=== PATIENT | female | born 1950 | race Caucasian/White ===

== ENCOUNTER → 2017-09-17 | Outpatient (CLI) | payer MEDICARE, OTHER ==
--- NOTE | 2017-09-18 18:10 | Diagnostic Imaging Report ---
#[id number] - MGSCRBIL #BILATERAL DIGITAL SCREENING MAMMOGRAM WITH CAD: 09/17/2017 CLINICAL: Routine screening. Comparison is made to exam dated: 10/13/2014 mammogram - [facility]. Current study contains 4 films. The tissue of both breasts is predominantly fatty. Current study was also evaluated with a Computer Aided Detection (CAD) system. There are benign lymph nodes in both breasts. No significant masses, calcifications, or other findings are seen in either breast. There has been no significant interval change. IMPRESSION: BENIGN There is no mammographic evidence of malignancy. A 1 year screening mammogram is recommended. The patient will be notified by letter of the results. Chapito ferreira/ino:09/17/2017 18:54:19 Speech And Language Clinician: Danna CORBIN)(M), [facility] letter sent: Compared to Prior B9 Mammogram BI-RADS: 2 Benign
== END ==
LOC: MAMMO 09:36
PROVIDERS: ATTEND Internal Medicine
DX: Z12.31 Encounter for screening mammogram for malignant neoplasm of breast (principal)
CPT/HCPCS: 77067

== ENCOUNTER → 2018-10-05 | Outpatient (CLI) | payer MEDICARE, OTHER | LOC: MAMMO 13:54 | PROVIDERS: ATTEND Internal Medicine | DX: Z12.31 Encounter for screening mammogram for malignant neoplasm of breast (principal) | CPT/HCPCS: 77067 ==

== ENCOUNTER 2020-06-15 13:08 | Inpatient (IN) | payer MEDICARE, OTHER ==
[~2020-06-15] VITALS: Ht 170.2 cm; Wt 110.7 kg
[2020-06-15] MEDS ORDERED: FUROSEMIDE INJ 10 MG/ML 2 ML VIAL IV PRN (14:15)
[2020-06-15] MEDS ORDERED: SODIUM CHLORIDE 0.9% 250ML 250 ML IV ONE (14:15)
[2020-06-15] MEDS ORDERED: SIMETHICONE 80 MG CHEW PO PRN (15:00)
[2020-06-15] MEDS ORDERED: BENZONATATE 100 MG CAP PO PRN (15:00)
[2020-06-15] MEDS ORDERED: DOCUSATE SODIUM 100 MG CAP PO PRN (15:00)
[2020-06-15] MEDS ORDERED: DIPHENHYDRAMINE HCL 25 MG CAP PO PRN (15:00)
[2020-06-15] MEDS ORDERED: POLYETHYLENE GLYCOL 3350 17 GM PACK PO PRN (15:00)
[2020-06-15] MEDS ORDERED: CHLORASEPTIC SPRAY 177 ML BTL MM PRN (15:00)
[2020-06-15] MEDS ORDERED: ONDANSETRON HCL INJ 2MG/ML 2ML 2 MG/ML VIAL IV PRN (15:00)
[2020-06-15] MEDS ORDERED: HYDRALAZINE HCL 20 MG/ML VIAL IV PRN (15:00)
[2020-06-15] MEDS ORDERED: ALBUTEROL/IPRATROPIUM 3 ML NEB NEB PRN (15:00)
[2020-06-15] MEDS ORDERED: DEXTROSE 50% SYRINGE 50 ML IV PRN (15:00)
[2020-06-15 15:07] LABS: BASOPHILS % 0.5 % (0.0-1.0); EOSINOPHILS # (AUTO) 0.2 (0.0-0.4); EOSINOPHILS % 2.6 % (0.0-6.0); HEMATOCRIT 23.3 % (34.2-44.1); LYMPHOCYTES # (AUTO) 0.8 (1.0-3.2); LYMPHOCYTES % 13.6 % (18.0-39.1); MEAN CORPUSCULAR HEMOGLOBIN 22.9 pg (28-32); MEAN CORPUSCULAR VOLUME 84.7 fL (81-99); MONOCYTES # (AUTO) 0.8 (0.2-0.8); MONOCYTES % 13.2 % (4.4-11.3); NEUTROPHILS # (AUTO) 4.1 (2.1-6.9); NEUTROPHILS % 69.6 % (38.7-80.0); PLATELET COUNT 200 x10e3/uL (140-360); RED BLOOD COUNT 2.75 x10e6/uL (3.6-5.1); RED CELL DISTRIBUTION WIDTH 22.4 % (11.7-14.4)
[2020-06-15 15:09] LABS: HEMOGLOBIN 6.3 g/dL (12.0-16.0)
[2020-06-15] MEDS ORDERED: ASPIRIN 81 MG CHEW TAB PO ONE (16:15)
[2020-06-15 16:21] LABS: INR 1.07; PROTHROMBIN TIME 14.5 seconds (11.9-14.5)
[2020-06-15 16:22] LABS: PARTIAL THROMBOPLASTIN TIME 26.9 seconds (23.8-35.5)
[2020-06-15 16:31] LABS: ALANINE AMINOTRANSFERASE 40 IU/L (0-55); ALBUMIN 3.1 g/dL (3.5-5.0); ALBUMIN/GLOBULIN RATIO 1.1 (0.8-2.0); ALKALINE PHOSPHATASE 169 IU/L (40-150); ANION GAP 13.8 mmol/L (8-16); BLOOD UREA NITROGEN 8 mg/dL (7-26); BUN/CREATININE RATIO 7 (6-25); CALCIUM 7.9 mg/dL (8.4-10.2); CARBON DIOXIDE 27 mmol/L (22-29); CHLORIDE 103 mmol/L (98-107); CREATINE KINASE 176 IU/L (29-168); CREATININE, SERUM 1.19 mg/dL (0.57-1.11); EST GLOMERULAR FILTRATION RATE 45 ML/MIN (60-); GLUCOSE 120 mg/dL (74-118); POTASSIUM 3.8 mmol/L (3.5-5.1); SODIUM 140 mmol/L (136-145)
[2020-06-15 16:53] LABS: CLARITY,URINE SL CLOUDY (CLEAR); COLOR,URINE YELLOW (YELLOW); KETONES,URINE NEGATIVE (NEGATIVE); LEUKOCYTE ESTERASE ,URINE NEGATIVE (NEGATIVE); NITRITE,URINE NEGATIVE (NEGATIVE); PROTEIN,URINE DIPSTICK NEGATIVE (NEGATIVE); URINE UROBILINOGEN 0.2 mg/dL (0.2 - 1)
[2020-06-15 17:11] LABS: BACTERIA,URINE FEW /HPF; EPITHELIAL CELLS,URINE RARE /LPF
[2020-06-15] MEDS: FUROSEMIDE INJ 10 MG/ML 4 ML VIAL IV SCH (17:51)
[2020-06-15] MEDS: PANTOPRAZOL 40MG/SOD CHL 0.9% 50 ML IV SCH ×2 (17:51→23:11)
[2020-06-15] MEDS: CEFEPIME 1GM/NS 0.9% 50 ML 50 ML IV SCH (17:51)
[2020-06-15] MEDS ORDERED: SODIUM CHLORIDE 0.9% 250ML 250 ML ONE (19:47)
[2020-06-15] MEDS: VANCOMYCIN 1GM/NS 250 ML 250 ML IV SCH (19:49)
[2020-06-15] MEDS ORDERED: SODIUM CHLORIDE 0.9% 250ML 500 ML ONE (19:53)
[2020-06-15 20:00] VITALS: BP 117/51
[2020-06-15] MEDS ORDERED: ENTRESTO 24 MG1 EACH PO (20:30)
[2020-06-15] MEDS ORDERED: METOPROLOL SUCC25 MG PO (20:33)
[2020-06-15] MEDS ORDERED: ATORVASTATIN CA20 MG PO (20:33)
[2020-06-15] MEDS ORDERED: FUROSEMIDE40 MG/4 ML IV (20:33)
[2020-06-15] MEDS ORDERED: AMIODARONE HCL200 MG PO (20:34)
[2020-06-15] MEDS ORDERED: XARELTO20 MG PO (20:34)
[2020-06-15] MEDS ORDERED: VENLAFAXINE H37.5 M2 PO (20:35)
[2020-06-15 21:00] VITALS: BP 117/51
[2020-06-15] MEDS ORDERED: MELATONIN 5 MG TABLET PO PRN (21:00)
[2020-06-15 21:59] VITALS: BP 117/51
[2020-06-15 22:02] VITALS: BP 117/51
[2020-06-15 23:10] LABS: HEMOGLOBIN 6.5 g/dL (12.0-16.0)
[2020-06-15 23:34] LABS: FERRITIN 26.5 ng/mL (4.63-204.00)
[2020-06-16] VITALS (7 sets, daily range): BP systolic 110–122; BP diastolic 45–65
[2020-06-16] MEDS ORDERED: CYANOCOBALAMIN INJ 1,000 MCG/ML VIAL IM ONE (01:15)
[2020-06-16] MEDS: FUROSEMIDE INJ 10 MG/ML 4 ML VIAL IV SCH ×2 (01:37→09:11)
[2020-06-16] MEDS: PANTOPRAZOL 40MG/SOD CHL 0.9% 50 ML IV SCH ×4 (03:59→19:21)
[2020-06-16] MEDS: CEFEPIME 1GM/NS 0.9% 50 ML 50 ML IV SCH ×2 (03:59→16:50)
[2020-06-16] MEDS: VANCOMYCIN 1GM/NS 250 ML 250 ML IV SCH ×2 (05:54→20:34)
[2020-06-16 06:29] LABS: BASOPHILS % 0.7 % (0.0-1.0); EOSINOPHILS # (AUTO) 0.1 (0.0-0.4); EOSINOPHILS % 2.7 % (0.0-6.0); HEMATOCRIT 24.3 % (34.2-44.1); HEMOGLOBIN 7.2 g/dL (12.0-16.0); LYMPHOCYTES # (AUTO) 0.9 (1.0-3.2); LYMPHOCYTES % 19.6 % (18.0-39.1); MEAN CORPUSCULAR HEMOGLOBIN 25.1 pg (28-32); MEAN CORPUSCULAR HGB CONC 29.6 g/dL (31-35); MEAN CORPUSCULAR VOLUME 84.7 fL (81-99); MONOCYTES # (AUTO) 0.7 (0.2-0.8); MONOCYTES % 15.1 % (4.4-11.3); NEUTROPHILS # (AUTO) 2.8 (2.1-6.9); NEUTROPHILS % 61.7 % (38.7-80.0); PLATELET COUNT 150 x10e3/uL (140-360); RED BLOOD COUNT 2.87 x10e6/uL (3.6-5.1); RED CELL DISTRIBUTION WIDTH 20.8 % (11.7-14.4)
[2020-06-16 06:30] LABS: MAGNESIUM 1.5 MG/DL (1.3-2.1); PHOSPHORUS 3.9 MG/DL (2.3-4.7)
[2020-06-16] MEDS ORDERED: PANTOPRAZOLE SOD 40 MG TABEC PO SCH (07:30)
[2020-06-16] MEDS: CYANOCOBALAMIN INJ 1,000 MCG/ML VIAL IM SCH (09:11)
[2020-06-16] MEDS ORDERED: POTASSIUM CHLO10 ME1 PO (09:20)
[2020-06-16] MEDS ORDERED: DILTIAZEM 24HR180 MG PO (09:22)
[2020-06-16] MEDS ORDERED: FUROSEMIDE40 MG PO (09:25)
[2020-06-16] MEDS ORDERED: MUPIROCIN22 GM TOP (09:27)
[2020-06-16 10:38] LABS: ALBUMIN 2.6 g/dL (3.5-5.0); ANION GAP 12.3 mmol/L (8-16); CALCIUM 7.6 mg/dL (8.4-10.2); CREATININE, SERUM 1.13 mg/dL (0.57-1.11); POTASSIUM 3.3 mmol/L (3.5-5.1)
[2020-06-16] MEDS: IRON SUCROSE 100 MG in SODIUM CHLORIDE 0.9% 100 ML 100 ML IV SCH (11:50)
[2020-06-16] MEDS ORDERED: METOCLOPRAMIDE HCL 10 MG/2ML VIAL IV SCH (12:00)
[2020-06-16] MEDS ORDERED: SODIUM CHLORIDE 0.9% 250ML 250 ML IV ONE (18:00)
[2020-06-17] VITALS (7 sets, daily range): BP systolic 106–126; BP diastolic 49–70
[2020-06-17] MEDS: PANTOPRAZOL 40MG/SOD CHL 0.9% 50 ML IV SCH ×5 (05:00→20:00)
[2020-06-17] MEDS: VANCOMYCIN 1GM/NS 250 ML 250 ML IV SCH ×2 (05:45→18:05)
[2020-06-17] MEDS: FUROSEMIDE INJ 100 MG in SODIUM CHLORIDE 0.9% 100 ML 90 ML IV SCH ×2 (06:00→22:15)
[2020-06-17] MEDS: CEFEPIME 1GM/NS 0.9% 50 ML 50 ML IV SCH ×2 (07:41→16:57)
[2020-06-17] MEDS: CYANOCOBALAMIN INJ 1,000 MCG/ML VIAL IM SCH (09:05)
[2020-06-17] MEDS: AMIODARONE HCL 200 MG TAB PO SCH (09:05)
[2020-06-17 09:10] LABS: BASOPHILS % 0.4 % (0.0-1.0); EOSINOPHILS # (AUTO) 0.1 (0.0-0.4); EOSINOPHILS % 1.3 % (0.0-6.0); HEMATOCRIT 29.5 % (34.2-44.1); HEMOGLOBIN 8.8 g/dL (12.0-16.0); LYMPHOCYTES # (AUTO) 0.8 (1.0-3.2); LYMPHOCYTES % 18.3 % (18.0-39.1); MEAN CORPUSCULAR HEMOGLOBIN 25.6 pg (28-32); MEAN CORPUSCULAR HGB CONC 29.8 g/dL (31-35); MEAN CORPUSCULAR VOLUME 85.8 fL (81-99); MONOCYTES # (AUTO) 0.7 (0.2-0.8); MONOCYTES % 14.4 % (4.4-11.3); NEUTROPHILS % 65.4 % (38.7-80.0); PLATELET COUNT 140 x10e3/uL (140-360); RED BLOOD COUNT 3.44 x10e6/uL (3.6-5.1); RED CELL DISTRIBUTION WIDTH 20.3 % (11.7-14.4)
[2020-06-17 09:29] LABS: ANION GAP 11.2 mmol/L (8-16); CALCIUM 7.4 mg/dL (8.4-10.2); CREATININE, SERUM 1.1 mg/dL (0.57-1.11); POTASSIUM 3.2 mmol/L (3.5-5.1)
[2020-06-17] MEDS ORDERED: SODIUM CHLORIDE 0.9% 250ML 250 ML ONE (09:48)
[2020-06-17] MEDS: IRON SUCROSE 100 MG in SODIUM CHLORIDE 0.9% 100 ML 100 ML IV SCH (10:08)
[2020-06-17] MEDS ORDERED: PEG (High)/E-LYTE SOLN 4,000 ML BTL PO ONE (14:00)
[2020-06-17] MEDS: POTASSIUM CHLORIDE 20 MEQ TAB CR PO PRN (14:45)
[2020-06-18] VITALS (8 sets, daily range): BP systolic 106–121; BP diastolic 56–77
[2020-06-18] MEDS: CEFEPIME 1GM/NS 0.9% 50 ML 50 ML IV SCH ×2 (05:55→17:16)
[2020-06-18] MEDS: PANTOPRAZOL 40MG/SOD CHL 0.9% 50 ML IV SCH ×5 (05:55→22:50)
[2020-06-18] MEDS: VANCOMYCIN 1GM/NS 250 ML 250 ML IV SCH (07:20)
[2020-06-18] MEDS: FUROSEMIDE INJ 100 MG in SODIUM CHLORIDE 0.9% 100 ML 90 ML IV SCH (07:30)
[2020-06-18] MEDS: IRON SUCROSE 100 MG in SODIUM CHLORIDE 0.9% 100 ML 100 ML IV SCH (10:06)
[2020-06-18] MEDS: CYANOCOBALAMIN INJ 1,000 MCG/ML VIAL IM SCH (10:06)
[2020-06-18] MEDS: AMIODARONE HCL 200 MG TAB PO SCH (10:08)
[2020-06-18] MEDS ORDERED: POTASSIUM CHLORIDE 20MEQ/100ML 200 ML IV ONE (11:45)
[2020-06-18] MEDS ORDERED: MIDAZOLAM HCL 2 MG/2 ML VIAL ONE (13:05)
[2020-06-18] MEDS ORDERED: FENTANYL CITRATE/PF 100MCG/2 ML INJ ONE (13:05)
[2020-06-18] MEDS ORDERED: LIDOCAINE HCL 2% LOCAL INJ 5 ML SDV VIAL INJ ONE (13:46)
[2020-06-18] MEDS ORDERED: GLUCAGON FOR INJ 1 MG VIAL ONE (13:46)
[2020-06-18] MEDS ORDERED: PROPOFOL IV EMULSION 10 MG/ML 20 ML VIAL ONE (13:46)
[2020-06-18 21:38] LABS: WBC,FECAL (FECAL LACTOFERRIN) POSITIVE (NEGATIVE)
[2020-06-19] VITALS (8 sets, daily range): BP systolic 85–124; BP diastolic 41–85
[2020-06-19] MEDS: FUROSEMIDE INJ 100 MG in SODIUM CHLORIDE 0.9% 100 ML 90 ML IV SCH ×2 (03:30→08:52)
[2020-06-19] MEDS: PANTOPRAZOL 40MG/SOD CHL 0.9% 50 ML IV SCH ×4 (03:42→16:56)
[2020-06-19] MEDS: CEFEPIME 1GM/NS 0.9% 50 ML 50 ML IV SCH ×2 (05:12→16:59)
[2020-06-19] MEDS: ACETAMINOPHEN 325 MG TAB PO PRN ×2 (08:28→18:04)
[2020-06-19] MEDS: AMIODARONE HCL 200 MG TAB PO SCH (08:29)
[2020-06-19 08:30] LABS: BASOPHILS % 0.4 % (0.0-1.0); EOSINOPHILS # (AUTO) 0.1 (0.0-0.4); EOSINOPHILS % 0.6 % (0.0-6.0); HEMOGLOBIN 9.1 g/dL (12.0-16.0); LYMPHOCYTES # (AUTO) 0.8 (1.0-3.2); MEAN CORPUSCULAR HEMOGLOBIN 25.8 pg (28-32); MEAN CORPUSCULAR HGB CONC 29.4 g/dL (31-35); MEAN CORPUSCULAR VOLUME 87.8 fL (81-99); MONOCYTES # (AUTO) 1.3 (0.2-0.8); MONOCYTES % 15.9 % (4.4-11.3); NEUTROPHILS # (AUTO) 6.1 (2.1-6.9); NEUTROPHILS % 72.6 % (38.7-80.0); PLATELET COUNT 155 x10e3/uL (140-360); RED BLOOD COUNT 3.53 x10e6/uL (3.6-5.1); RED CELL DISTRIBUTION WIDTH 22.2 % (11.7-14.4)
[2020-06-19] MEDS ORDERED: HYDROCODONE/APAP 5MG-325MG TAB PO PRN (08:30)
[2020-06-19] MEDS: CYANOCOBALAMIN INJ 1,000 MCG/ML VIAL IM SCH (08:39)
[2020-06-19] MEDS: IRON SUCROSE 100 MG in SODIUM CHLORIDE 0.9% 100 ML 100 ML IV SCH (08:40)
[2020-06-19] MEDS: GUAIFENESIN/CODEINE 10 ML CUP PO PRN ×2 (08:52→18:03)
[2020-06-19 09:01] LABS: ANION GAP 13.3 mmol/L (8-16); CALCIUM 7.8 mg/dL (8.4-10.2); CREATININE, SERUM 1.02 mg/dL (0.57-1.11); POTASSIUM 3.3 mmol/L (3.5-5.1)
[2020-06-19] MEDS ORDERED: POTASSIUM CHLORIDE 20 MEQ TAB CR PO NR (10:03)
[2020-06-19 10:21] LABS: CHOL/HDL RATIO 1.8 (3.0-3.6)
[2020-06-19 12:53] LABS: C DIFFICILE TOXIN A&B AMP PROB NEGATIVE (NEGATIVE)
[2020-06-19] MEDS: VANCOMYCIN 750MG/NS 150ML IVPB 150 ML IV SCH (17:47)
[2020-06-19] MEDS ORDERED: CALCIUM GLUCONATE 10% INJ 9.3 MEQ in SODIUM CHLORIDE 0.9% 100 ML 100 ML IV ONE (19:45)
[2020-06-20] VITALS (8 sets, daily range): BP systolic 96–122; BP diastolic 49–73
[2020-06-20] MEDS: PANTOPRAZOL 40MG/SOD CHL 0.9% 50 ML IV SCH ×6 (00:38→23:06)
[2020-06-20] MEDS: VANCOMYCIN 750MG/NS 150ML IVPB 150 ML IV SCH ×2 (04:46→16:22)
[2020-06-20] MEDS: FUROSEMIDE INJ 100 MG in SODIUM CHLORIDE 0.9% 100 ML 90 ML IV SCH (05:46)
[2020-06-20] MEDS: CEFEPIME 1GM/NS 0.9% 50 ML 50 ML IV SCH ×2 (05:46→17:47)
[2020-06-20] MEDS: GUAIFENESIN/CODEINE 10 ML CUP PO PRN ×3 (08:03→20:52)
[2020-06-20] MEDS: AMIODARONE HCL 200 MG TAB PO SCH (08:06)
[2020-06-20] MEDS: CYANOCOBALAMIN INJ 1,000 MCG/ML VIAL IM SCH (09:55)
[2020-06-20] MEDS: IRON SUCROSE 100 MG in SODIUM CHLORIDE 0.9% 100 ML 100 ML IV SCH (09:56)
[2020-06-20 10:48] LABS: BASOPHILS % 0.4 % (0.0-1.0); EOSINOPHILS % 0.5 % (0.0-6.0); HEMATOCRIT 28.2 % (34.2-44.1); HEMOGLOBIN 8.2 g/dL (12.0-16.0); LYMPHOCYTES # (AUTO) 0.7 (1.0-3.2); LYMPHOCYTES % 9.4 % (18.0-39.1); MEAN CORPUSCULAR HEMOGLOBIN 26.1 pg (28-32); MEAN CORPUSCULAR HGB CONC 29.1 g/dL (31-35); MEAN CORPUSCULAR VOLUME 89.8 fL (81-99); MONOCYTES # (AUTO) 1.3 (0.2-0.8); NEUTROPHILS # (AUTO) 5.3 (2.1-6.9); NEUTROPHILS % 71.3 % (38.7-80.0); PLATELET COUNT 127 x10e3/uL (140-360); RED BLOOD COUNT 3.14 x10e6/uL (3.6-5.1); RED CELL DISTRIBUTION WIDTH 22.7 % (11.7-14.4)
[2020-06-20 11:14] LABS: ANION GAP 13.8 mmol/L (8-16); CALCIUM 7.2 mg/dL (8.4-10.2); CREATININE, SERUM 1.17 mg/dL (0.57-1.11)
[2020-06-20 11:21] LABS: POTASSIUM 2.8 mmol/L (3.5-5.1)
[2020-06-20] MEDS: POTASSIUM CHLORIDE 20 MEQ TAB CR PO PRN (11:27)
[2020-06-20] MEDS: METOPROLOL SUCCINATE 25 MG TAB XL PO SCH (12:09)
[2020-06-20] MEDS: ACETAMINOPHEN 325 MG TAB PO PRN (15:20)
[2020-06-20] MEDS ORDERED: POTASSIUM CHLORIDE 10MEQ EA PO ONE (15:30)
[2020-06-20] MEDS ORDERED: SODIUM CHLORIDE 0.9% 250ML 250 ML ONE (16:29)
[2020-06-20 19:04] LABS: ANION GAP 12.2 mmol/L (8-16); CALCIUM 7.7 mg/dL (8.4-10.2); CREATININE, SERUM 1.35 mg/dL (0.57-1.11); POTASSIUM 4.2 mmol/L (3.5-5.1)
[2020-06-21] VITALS: BP 108/53
[2020-06-21 04:00] VITALS: BP 108/61
[2020-06-21] MEDS: VANCOMYCIN 750MG/NS 150ML IVPB 150 ML IV SCH (04:58)
[2020-06-21] MEDS: PANTOPRAZOL 40MG/SOD CHL 0.9% 50 ML IV SCH ×2 (04:58→09:26)
[2020-06-21] MEDS: GUAIFENESIN/CODEINE 10 ML CUP PO PRN (04:59)
[2020-06-21] MEDS: CEFEPIME 1GM/NS 0.9% 50 ML 50 ML IV SCH (05:31)
[2020-06-21 07:50] VITALS: BP 111/60
[2020-06-21 08:06] VITALS: BP 111/60
[2020-06-21] MEDS ORDERED: FUROSEMIDE 40 MG TAB PO SCH (09:00)
[2020-06-21] MEDS ORDERED: AMIODARONE HCL 200 MG TAB PO SCH (09:00)
[2020-06-21] MEDS: CYANOCOBALAMIN INJ 1,000 MCG/ML VIAL IM SCH (09:26)
[2020-06-21] MEDS: IRON SUCROSE 100 MG in SODIUM CHLORIDE 0.9% 100 ML 100 ML IV SCH (09:33)
[2020-06-21] MEDS: METOPROLOL SUCCINATE 25 MG TAB XL PO SCH (09:33)
[2020-06-21 09:57] LABS: BASOPHILS % 0.3 % (0.0-1.0); EOSINOPHILS # (AUTO) 0.1 (0.0-0.4); EOSINOPHILS % 1.3 % (0.0-6.0); HEMOGLOBIN 8.5 g/dL (12.0-16.0); LYMPHOCYTES # (AUTO) 0.8 (1.0-3.2); LYMPHOCYTES % 13.3 % (18.0-39.1); MEAN CORPUSCULAR HEMOGLOBIN 25.8 pg (28-32); MEAN CORPUSCULAR HGB CONC 28.3 g/dL (31-35); MEAN CORPUSCULAR VOLUME 91.2 fL (81-99); MONOCYTES # (AUTO) 1.1 (0.2-0.8); MONOCYTES % 17.5 % (4.4-11.3); NEUTROPHILS # (AUTO) 4.1 (2.1-6.9); NEUTROPHILS % 67.1 % (38.7-80.0); PLATELET COUNT 162 x10e3/uL (140-360); RED BLOOD COUNT 3.29 x10e6/uL (3.6-5.1); RED CELL DISTRIBUTION WIDTH 23.2 % (11.7-14.4)
[2020-06-21 11:20] VITALS: BP 105/48
[2020-06-21] MEDS ORDERED: ONDANSETRON HCL 4 MG ORAL DISINTEGRATING TAB PO PRN (12:45)
[2020-06-21] MEDS ORDERED: PANTOPRAZOLE SO40 MG PO (13:41)
[2020-06-21] MEDS ORDERED: KEFLEX500 MG PO (13:43)
== END 2020-06-21 14:45 | disposition home or self-care (01) | DRG 377 ==
LOC: ER 13:22 → ERHOLD 14:06 → MED/SURG2 18:58 → OBSVTOIN 06-17 06:45
PROVIDERS: ADMIT Internal Medicine; ATTEND Internal Medicine
PROC: 30233N1 Transfusion of Nonautologous Red Blood Cells into Peripheral Vein, Percutaneous Approach (ICD-10-PCS; 2020-06-17)
PROC: 0D5H8ZZ Destruction of Cecum, Via Natural or Artificial Opening Endoscopic (ICD-10-PCS; 2020-06-18)
PROC: 0DB78ZX Excision of Stomach, Pylorus, Via Natural or Artificial Opening Endoscopic, Diagnostic (ICD-10-PCS; principal; 2020-06-18 18:00)
PROC: 0DBB8ZX Excision of Ileum, Via Natural or Artificial Opening Endoscopic, Diagnostic (ICD-10-PCS; 2020-06-18 18:00)
PROC: 0DB88ZX Excision of Small Intestine, Via Natural or Artificial Opening Endoscopic, Diagnostic (ICD-10-PCS; 2020-06-18 18:00)
PROC: 02HV33Z Insertion of Infusion Device into Superior Vena Cava, Percutaneous Approach (ICD-10-PCS; 2020-06-19)
DX: K55.21 Angiodysplasia of colon with hemorrhage (principal); I50.33 Acute on chronic diastolic (congestive) heart failure; L03.115 Cellulitis of right lower limb; T82.898A Other specified complication of vascular prosthetic devices, implants and grafts, initial encounter; L03.113 Cellulitis of right upper limb; E78.00 Pure hypercholesterolemia, unspecified; K44.9 Diaphragmatic hernia without obstruction or gangrene; K64.8 Other hemorrhoids; K20.90 Esophagitis, unspecified without bleeding; K29.70 Gastritis, unspecified, without bleeding; Z79.01 Long term (current) use of anticoagulants; R60.0 Localized edema; D50.0 Iron deficiency anemia secondary to blood loss (chronic); E66.9 Obesity, unspecified; Z68.38 Body mass index [BMI] 38.0-38.9, adult; K57.30 Diverticulosis of large intestine without perforation or abscess without bleeding; I11.0 Hypertensive heart disease with heart failure; Z91.81 History of falling; Z91.19 Patient's noncompliance with other medical treatment and regimen; Z20.828 Contact with and (suspected) exposure to other viral communicable diseases
CPT/HCPCS: 36415; 36569; 43239; 45380; 45388; 71045; 74470; 80048; 80053; 80061; 80202; 81001; 82270; 82550; 82553; 82607; 82728; 82746; 83540; 83630; 83735; 83880; 83993; 84100; 84466; 84484; 85014; 85018; 85025; 85045; 85610; 85730; 86850; 86900; 86920; 87040; 87045; 87177; 87328; 87493; 88305; 88312; 93306; 93970; 99284; G0378; J0610; J0692; J1610; J1756; J1940; J2001; J2250; J3010; J3370; J3420; J3480; J7050; P9016; U0002

== ENCOUNTER → 2020-12-10 | Outpatient (CLI) | payer MEDICARE, OTHER ==
[~2020-12-10] MED LIST: AMIODARONE HCL200 MG PO; ATORVASTATIN CA20 MG PO; DILTIAZEM 24HR180 MG PO; ENTRESTO 24 MG1 EACH PO; FUROSEMIDE40 MG PO; FUROSEMIDE40 MG/4 ML IV; KEFLEX500 MG PO; METOPROLOL SUCC25 MG PO; MUPIROCIN22 GM TOP; PANTOPRAZOLE SO40 MG PO; POTASSIUM CHLO10 ME1 PO; VENLAFAXINE H37.5 M2 PO; XARELTO20 MG PO
== END ==
LOC: MAMMO 11:06
PROVIDERS: ATTEND Internal Medicine
DX: Z12.31 Encounter for screening mammogram for malignant neoplasm of breast (principal)
CPT/HCPCS: 77067

== ENCOUNTER → 2022-04-01 | Outpatient (CLI) | payer MEDICARE, OTHER | LOC: RAD 12:01 | PROVIDERS: ATTEND Internal Medicine | DX: M54.6 Pain in thoracic spine (principal); M54.50 Low back pain, unspecified | CPT/HCPCS: 72072; 72110 ==